=== PATIENT | female | born 1965 | race Caucasian/White ===

== ENCOUNTER 2018-05-24 05:56 | Emergency (ER) | payer OTHER ==
[~2018-05-24] VITALS: Ht 167.6 cm; Wt 72.6 kg
[~2018-05-24 05:56] MED LIST: AMOXICILLIN 50500 M1 PO; DARVOCET; DARVOCET-N 1001 EAC1 PO
[2018-05-24] MEDS ORDERED: NORCO 5-325 TA1 EACH PO (06:29)
[2018-05-24 07:04] VITALS: BP 148/82
== END 2018-05-24 07:04 | disposition home or self-care (01) ==
LOC: M.ERS 05:56
DX: S42.002A Fracture of unspecified part of left clavicle, initial encounter for closed fracture (principal); S80.212A Abrasion, left knee, initial encounter; S60.011A Contusion of right thumb without damage to nail, initial encounter; I10 Essential (primary) hypertension; F20.9 Schizophrenia, unspecified; Z91.041 Radiographic dye allergy status; Z91.02 Food additives allergy status; Z91.09 Other allergy status, other than to drugs and biological substances; V87.7XXA Person injured in collision between other specified motor vehicles (traffic), initial encounter; Y93.89 Activity, other specified; Y92.89 Other specified places as the place of occurrence of the external cause; Y99.8 Other external cause status